=== PATIENT | female | born 1980 | race Caucasian/White ===

== ENCOUNTER 2020-12-05 22:43 | Emergency (ER) | payer OTHER, SELFPAY ==
--- NOTE | ~2020-12-05 | XR_ITS ---
EXAMINATION: LEFT KNEE, LEFT TIB-FIB, LEFT ANKLE CLINICAL INFORMATION: Fall with pain COMPARISON: None TECHNIQUE: 4 views left knee, 2 views left tib-fib, 3 views left ankle FINDINGS: No significant bone joint or soft tissue abnormality is seen. Incidental note made of a plantar calcaneal spur. XR/XR ankle LT min 3V IMPRESSION: No traumatic osseous injury.
--- NOTE | ~2020-12-05 | XR_ITS ---
EXAMINATION: LEFT KNEE, LEFT TIB-FIB, LEFT ANKLE CLINICAL INFORMATION: Fall with pain COMPARISON: None TECHNIQUE: 4 views left knee, 2 views left tib-fib, 3 views left ankle FINDINGS: No significant bone joint or soft tissue abnormality is seen. Incidental note made of a plantar calcaneal spur. XR/XR knee LT 2V IMPRESSION: No traumatic osseous injury.
--- NOTE | ~2020-12-05 | XR_ITS ---
EXAMINATION: LEFT KNEE, LEFT TIB-FIB, LEFT ANKLE CLINICAL INFORMATION: Fall with pain COMPARISON: None TECHNIQUE: 4 views left knee, 2 views left tib-fib, 3 views left ankle FINDINGS: No significant bone joint or soft tissue abnormality is seen. Incidental note made of a plantar calcaneal spur. XR/XR tibia fibula LT 2V IMPRESSION: No traumatic osseous injury.
[2020-12-05 22:54] VITALS: BP 116/55; PULSE 76; RESP 18; TEMP 36.7; O2SAT 100; BMI 39.4
--- NOTE | 2020-12-06 00:51 | ED.LOWEXIN ---
HPI - Extremity Injury (Lower) General Chief Complaint: Extremity Injury, Lower Stated Complaint: PT believes leg is broken from fall Time Seen by Provider: 12/05/20 23:37 Source: patient Mode of arrival: ambulatory History of Present Illness HPI Narrative: 40-year-old female with presentation after stepping into a hole in her yd while walking her dog which led to her falling against cement sidewalk and initially having significant pain within her knee and ankle. Patient states that her pain currently has much improved. Related Data Allergies Allergy/AdvReac Type Severity Reaction Status Date / Time No Known Allergies Allergy Verified 12/05/20 22:54 Review of Systems Review of Systems: Pertinent positives and negatives as stated in HPI 10 point review systems is otherwise negative. [facility] Past Medical History Source: nursing notes reviewed Medical History Anxiety Colitis Surgical History History of facial surgery History of surgery on arm Social History Social History Advance Directives: No Advance Directives Information Provided: No Patient : No Physical Exam Vital Signs: Vital Signs: Last Vital Signs Temp 98.1 F 12/05/20 22:54 Pulse 76 12/05/20 22:54 Resp 18 12/05/20 22:54 BP 116/55 L 12/05/20 22:54 Pulse Ox 100 12/05/20 22:54 Body Mass Index 39.4 VITAL SIGNS: Reviewed. GENERAL: Well developed, well nourished, in no acute distress. HEAD: Normocephalic/atraumatic EYES: PERRLA, EOMI EARS: Ext canals without abnormality OROPHARYNX: no oral lesions noted, posterior pharynx clear LUNGS: Normal breath sounds. No adventitious sounds or accessory muscle use. SpO2<100> CARDIOVASCULAR: Regular rate and rhythm without noted murmurs, ABDOMEN: Soft, non-tender, non-distended with bowel sounds. LEFT LOWER EXTREMITY: No deformities noted, no swelling/erythema/induration, mild abrasion noted to anterior aspect that is hemostatic and patient able to actively range of motion at the hip/knee/ankle without pain, capillary refill less than 3 seconds and palpable DP/PT. SKIN: Inspection of the skin reveals no rashes, abrasion noted to anterior aspect of left lower extremity/hemostatic NEUROLOGIC: Alert and oriented x 4. Strength and sensation to light touch were grossly intact x 4. Course Course Course Narrative: 40-year-old female with history and clinical presentation consistent with mild twist injury to left lower extremity and on review of all imaging otherwise negative for dislocation or bony injury. Patient now feeling much improved and reports tetanus shot last year and has declined combination analgesics here in the emergency room. She was otherwise discharged home in stable condition. Discharge Plan Discharge Clinical Impression: Leg pain, left Patient Disposition: Home, Self-Care Instructions: Leg Pain (ED), Abrasion (ED) Additional Instructions: 1. Recommend gentle cleansing of abrasion with soap and water, blot dry, apply bacitracin. 2. Recommended utilizing [id number] Tylenol/ibuprofen as needed for additional pain control. 3. Follow-up with your primary care provider in the next 2-3 days for re-evaluation. Return to the ER if you experience any acute worsening of your symptoms. Referrals: James Monae MD [Primary Care Provider] - 2 days
--- NOTE | 2020-12-06 00:56 | PC.NURSE ---
pt is upto date with tetanus she received t-dap 2 years ago.
== END 2020-12-06 01:09 | disposition home or self-care (01) ==
PROVIDERS: Emergency Provider Student in an Organized Health Care Education/Training Program; PCP Internal Medicine
DX: M79.605 Pain in left leg (principal); S80.812A Abrasion, left lower leg, initial encounter; W17.2XXA Fall into hole, initial encounter; Y93.K1 Activity, walking an animal; Y92.017 Garden or yard in single-family (private) house as the place of occurrence of the external cause; Y99.9 Unspecified external cause status
CPT/HCPCS: 73560; 73590; 73610; 99283